=== PATIENT | male | born 2000 | race African-American/Black ===

== ENCOUNTER 2023-04-14 09:35 | Emergency (ER) | payer BC ==
[~2023-04-14] VITALS: Ht 167.6 cm; Wt 63.7 kg
[2023-04-14 12:33] VITALS: BP 168/103; TEMP 98.8; O2SAT 96
== END 2023-04-14 12:36 | disposition home or self-care (01) ==
LOC: M ED 09:35
DX: R20.2 Paresthesia of skin (principal)

== ENCOUNTER → 2023-11-13 | Outpatient (CLI) | payer BC ==
[2023-11-13 19:23] LABS: FREE THYROXINE INDEX 1.6 % (1.4-3.8); T UPTAKE 38.2 % (22.5-37.0); THYROXINE (T4) 4.1 UG/DL (4.5-10.9)
[2023-11-13 19:24] LABS: THYROID STIMULATING HORMONE 0.892 uIU/ML (0.55-4.78); VITAMIN B12 LEVEL 646 PG/ML (211-911)
[2023-11-13 19:26] LABS: FOLATE > 24.0 NG/ML (>5.4)
[2023-11-13 19:50] LABS: HEMOGLOBIN A1c 5.2 % (4.0-6.0)
== END ==
LOC: M PLALAB 15:29
PROVIDERS: ATTEND Psychiatry & Neurology Neurology
DX: E07.9 Disorder of thyroid, unspecified (principal)